=== PATIENT | male | born 1945 ===

== ENCOUNTER 2024-06-13 11:15 | Inpatient (IN) | payer OTHER ==
[~2024-06-13] VITALS: Ht 162.6 cm; Wt 93.4 kg
[2024-06-13] MEDS ORDERED: METFORMIN HCL1000 M2 PO (14:56)
[2024-06-13] MEDS ORDERED: ZOCOR20 MG PO (14:57)
[2024-06-13] MEDS ORDERED: ZESTRIL30 MG PO (14:57)
[2024-06-13] MEDS ORDERED: PENTOXIFYLLINE400 MG PO (14:57)
[2024-06-13] MEDS ORDERED: FINASTERIDE5 MG PO (14:58)
[2024-06-13] MEDS ORDERED: TAMS0.4C PO (14:58)
[2024-06-13] MEDS ORDERED: ZOLOFT25 MG PO (14:58)
[2024-06-13] MEDS ORDERED: GLIMEPIRIDE2 M1 PO (14:59)
[2024-06-13] MEDS ORDERED: MEMANTINE HCL10 MG PO (14:59)
[2024-06-13 15:00] VITALS: BP 146/70
[2024-06-13] MEDS ORDERED: LASIX20 MG PO (15:00)
[2024-06-18] MEDS ORDERED: LIDOCAINE HCL 1%/EPINEPHRINE 20ML VIAL IJ ONE (06:35)
[2024-06-18] MEDS ORDERED: METRONIDAZOLE/SODIUM CHLORIDE 500 MG/100 ML PIGGYBACK IV ONE (06:35)
[2024-06-18] MEDS ORDERED: CEFTRIAXONE SODIUM 2,000 MG VIAL ONE (06:35)
[2024-06-18] MEDS ORDERED: BUPIVACAINE HCL/MPF 0.5% 30ML VIAL ONE (06:36)
[2024-06-18] MEDS ORDERED: DEXTROSE 50 % IN WATER 0.5 G/ML DISP.SYRIN IV PRN ×2 (09:15→13:15)
[2024-06-18] MEDS ORDERED: RINGERS SOLUTION,LACTATED 1,000 ML IV SCH (09:15)
[2024-06-18] MEDS ORDERED: ONDANSETRON HCL 2 MG/ML VIAL IV PRN (09:15)
[2024-06-18] MEDS ORDERED: MORPHINE SULFATE 4 MG/ML CARTRIDGE IV PRN (09:15)
[2024-06-18] MEDS ORDERED: OxyCODONE HCL 5 MG TABLET (ROXICODONE) PO PRN (09:15)
[2024-06-18] MEDS ORDERED: SUGAMMADEX SODIUM 200 MG/2 ML VIAL IV ONE (09:27)
[2024-06-18 11:46] LABS: HEMATOCRIT 34.6 % (39.0-48.0); MEAN CELL VOLUME 88.2 fL (80.0-100.00); MEAN CORPUSCULAR HEMOGLOBIN 27.9 pg (27.00-32.0); MEAN CORPUSCULAR HGB CONC 31.7 g/dl (32.0-36.0); PLATELET COUNT 96 K/uL (150-450); RED BLOOD COUNT 3.92 M/uL (4.00-6.00); RED CELL DISTRIBUTION WIDTH 16.5 % (11.5-14.5)
[2024-06-18 12:22] LABS: ALBUMIN 3.1 gm/dL (3.4-5.0); CREATININE SERUM 1.1 mg/dL (0.70-1.30); GFR 64.57; MAGNESIUM 1.6 mg/dL (1.8-2.4); PHOSPHOROUS 3.6 mg/dL (2.5-4.9); POTASSIUM 4.01 mEq/L (3.5-5.1)
[2024-06-18] MEDS ORDERED: HYOSCYAMINE SULFATE 0.125 MG TAB.SUBL SL SCH (13:00)
[2024-06-18] MEDS ORDERED: INSULIN LISPRO 1,000 UNIT/10 ML UNITS SUBCUTANEO PRN (13:15)
[2024-06-18] MEDS ORDERED: MAGNESIUM SULFATE IN WATER 50 ML IV NR (13:15)
[2024-06-18] MEDS ORDERED: CHLORDIAZEPOXIDE HCL 25 MG CAPSULE PO SCH (13:18)
[2024-06-18 13:28] VITALS: BP 146/70; O2SAT 94
[2024-06-18] MEDS ORDERED: ACETAMINOPHEN 500 MG GEL..CAP PO SCH (14:00)
[2024-06-18 14:01] VITALS: O2SAT 96
[2024-06-18 14:30] LABS: ABG PH 7.398 (7.35-7.45); ABG PO2 69.7 mmHg (80-100); ABG pCO2 40.7 mmHg (35-45); BASE EXCESS -0.3 mmol/l; BICARBONATE 24.5 mmol/l (23-25); SaO2 93.7 %; Tco2 25.8 mmol/l
[2024-06-18 14:33] LABS: o2 21 %; puncture site RADIAL LEFT
[2024-06-18 14:34] LABS: allen test SATISFACTORY
[2024-06-18 16:25] VITALS: BP 149/83; O2SAT 98
[2024-06-18 16:32] VITALS: O2SAT 90
[2024-06-18] MEDS ORDERED: POLYETHYLENE GLYCOL 3350 17 GM BLIST.PACK PO SCH (17:00)
[2024-06-18 19:31] VITALS: O2SAT 90
[2024-06-18] MEDS ORDERED: SERTRALINE HCL 25 MG TABLET PO SCH (21:00)
[2024-06-18] MEDS ORDERED: TAMSULOSIN HCL 0.4 MG CAP PO SCH (21:00)
[2024-06-18] MEDS ORDERED: FAMOTIDINE/PF 20 MG/2 ML VIAL IV PUSH SCH (21:00)
[2024-06-18] MEDS ORDERED: MEMANTINE HCL 10 MG TABLET PO SCH (21:00)
[2024-06-18] MEDS ORDERED: CELECOXIB 200 MG CAPSULE PO SCH (21:00)
[2024-06-19] VITALS (7 sets, daily range): BP systolic 117–133; BP diastolic 65–93; O2SAT 86–100
[2024-06-19] MEDS ORDERED: LEVALBUTEROL HCL 0.63 MG/3 ML SOLUTION IH SCH (06:00)
[2024-06-19 07:11] LABS: HEMATOCRIT 33.3 % (39.0-48.0); HEMOGLOBIN 10.9 g/dL (13-16.00); MEAN CELL VOLUME 86.3 fL (80.0-100.00); MEAN CORPUSCULAR HEMOGLOBIN 28.4 pg (27.00-32.0); MEAN CORPUSCULAR HGB CONC 32.9 g/dl (32.0-36.0); PLATELET COUNT 197 K/uL (150-450); RED BLOOD COUNT 3.86 M/uL (4.00-6.00); RED CELL DISTRIBUTION WIDTH 17.1 % (11.5-14.5)
[2024-06-19 08:18] LABS: ALBUMIN 2.6 gm/dL (3.4-5.0); CALCIUM 7.9 mg/dL (8.5-10.1); CREATININE SERUM 1.03 mg/dL (0.70-1.30); GFR 69.66; MAGNESIUM 2.1 mg/dL (1.8-2.4); PHOSPHOROUS 3.5 mg/dL (2.5-4.9); POTASSIUM 3.69 mEq/L (3.5-5.1)
[2024-06-19] MEDS ORDERED: FINASTERIDE 5 MG TABLET PO SCH (09:00)
[2024-06-19] MEDS ORDERED: THIAMINE HCL 100 MG TABLET PO SCH (09:00)
[2024-06-19] MEDS ORDERED: LISINOPRIL 10 MG TABLET PO SCH (09:00)
[2024-06-19] MEDS ORDERED: FUROsemide 20 MG TABLET PO SCH (09:00)
[2024-06-19] MEDS ORDERED: SIMVASTATIN 20 MG TABLET PO SCH (17:00)
[2024-06-19] MEDS ORDERED: ENOXAPARIN SODIUM 40 MG/0.4 ML SYRINGE SUBCUTANEO SCH (17:00)
[2024-06-20] VITALS (8 sets, daily range): BP systolic 128–169; BP diastolic 70–92; O2SAT 91–99
[2024-06-20] MEDS ORDERED: ENOXAPARIN SODIUM 40 MG/0.4 ML SYRINGE SUBCUTANEO SCH (09:00)
[2024-06-20 10:23] LABS: HEMATOCRIT 34.9 % (39.0-48.0); HEMOGLOBIN 11.3 g/dL (13-16.00); MEAN CELL VOLUME 86.9 fL (80.0-100.00); MEAN CORPUSCULAR HEMOGLOBIN 28.1 pg (27.00-32.0); MEAN CORPUSCULAR HGB CONC 32.3 g/dl (32.0-36.0); PLATELET COUNT 214 K/uL (150-450); RED BLOOD COUNT 4.02 M/uL (4.00-6.00); RED CELL DISTRIBUTION WIDTH 16.6 % (11.5-14.5)
[2024-06-20 11:20] LABS: CREATININE SERUM 1.06 mg/dL (0.70-1.30); GFR 67.39; POTASSIUM 3.75 mEq/L (3.5-5.1)
[2024-06-20] MEDS ORDERED: METHYLPREDNISOLONE SOD SUCC 40 MG VIAL IV STA (11:38)
[2024-06-20] MEDS ORDERED: METHYLPREDNISOLONE SOD SUCC 40 MG VIAL ONE (11:40)
[2024-06-20] MEDS ORDERED: POTASSIUM PHOS,M-BASIC-D-BASIC 3 MM/ML VIAL IV NR (12:00)
[2024-06-20 12:19] LABS: ABG PO2 120.2 mmHg (80-100); ABG pCO2 43.8 mmHg (35-45); BASE EXCESS 0.6 mmol/l; BICARBONATE 25.9 mmol/l (23-25); SaO2 98.6 %; Tco2 27.2 mmol/l
[2024-06-20] MEDS ORDERED: IPRATROPIUM BROMIDE 0.5 MG/2.5 ML AMPUL.NEB IH STA (12:21)
[2024-06-20] MEDS ORDERED: BUDESONIDE 0.25 MG/2 ML AMPUL.NEB IH STA (12:22)
[2024-06-20] MEDS ORDERED: CHLORDIAZEPOXIDE HCL 25 MG CAPSULE PO SCH (13:00)
[2024-06-20 16:12] LABS: allen test SATISFACTORY; o2 32 %; puncture site RADIAL RIGHT
[2024-06-21 01:03] VITALS: BP 153/82; O2SAT 95
[2024-06-21 08:00] VITALS: BP 160/68; O2SAT 98
[2024-06-21] MEDS ORDERED: FLUMAZENIL 0.5 MG/5 ML ML IV STA (11:24)
[2024-06-21 13:09] VITALS: O2SAT 94
[2024-06-21] MEDS ORDERED: AA 4.25%/CAL/LYTES/DEXT 5% 1,000 ML PERIFERAL SCH (17:00)
[2024-06-21 17:02] VITALS: BP 141/84; O2SAT 98
[2024-06-21] MEDS ORDERED: CHLORDIAZEPOXIDE HCL 25 MG CAPSULE PO SCH (21:00)
[2024-06-22] VITALS: BP 134/85; O2SAT 96
[2024-06-22 03:30] VITALS: O2SAT 96
[2024-06-22 08:00] VITALS: BP 147/88; O2SAT 97
[2024-06-22 08:15] LABS: HEMATOCRIT 32.3 % (39.0-48.0); HEMOGLOBIN 10.7 g/dL (13-16.00); MEAN CELL VOLUME 85.7 fL (80.0-100.00); MEAN CORPUSCULAR HEMOGLOBIN 28.4 pg (27.00-32.0); MEAN CORPUSCULAR HGB CONC 33.1 g/dl (32.0-36.0); PLATELET COUNT 290 K/uL (150-450); RED BLOOD COUNT 3.77 M/uL (4.00-6.00)
[2024-06-22 08:48] LABS: CALCIUM 8.4 mg/dL (8.5-10.1); CREATININE SERUM 0.82 mg/dL (0.70-1.30); GFR 90.63; MAGNESIUM 2.1 mg/dL (1.8-2.4); PHOSPHOROUS 2.7 mg/dL (2.5-4.9); POTASSIUM 4.23 mEq/L (3.5-5.1)
[2024-06-22 16:00] VITALS: BP 167/90; O2SAT 97
[2024-06-22 17:31] VITALS: O2SAT 96
[2024-06-22] MEDS ORDERED: CHLORDIAZEPOXIDE HCL 25 MG CAPSULE PO SCH (21:00)
[2024-06-22 21:03] VITALS: O2SAT 95
[2024-06-23] VITALS (9 sets, daily range): BP systolic 149–165; BP diastolic 79–90; O2SAT 92–99
[2024-06-23 08:15] LABS: ALBUMIN 2.6 gm/dL (3.4-5.0); BILIRUBIN TOTAL 0.82 mg/dL (0.3-1.2); CALCIUM 8.7 mg/dL (8.5-10.1); CREATININE SERUM 0.89 mg/dL (0.70-1.30); GFR 82.46; GLOBULINA 3.1 G/DL (2.4-3.5); POTASSIUM 3.8 mEq/L (3.5-5.1); TOTAL PROTEIN 5.7 gm/dL (6.4-8.2)
[2024-06-23] MEDS ORDERED: SODIUM CHLORIDE 0.45 % 1,000 ML IV SCH (10:00)
[2024-06-24] VITALS (9 sets, daily range): BP systolic 156–184; BP diastolic 85–107; O2SAT 93–98
[2024-06-24 07:26] LABS: ALBUMIN 2.7 gm/dL (3.4-5.0); BILIRUBIN TOTAL 0.6 mg/dL (0.3-1.2); CALCIUM 8.7 mg/dL (8.5-10.1); CREATININE SERUM 0.85 mg/dL (0.70-1.30); GFR 86.95; GLOBULINA 3.2 G/DL (2.4-3.5); POTASSIUM 3.76 mEq/L (3.5-5.1); TOTAL PROTEIN 5.9 gm/dL (6.4-8.2)
[2024-06-24] MEDS ORDERED: DEXTROSE 5 % IN WATER 1,000 ML IV STA (10:44)
[2024-06-24] MEDS ORDERED: FLUMAZENIL 0.5 MG/5 ML ML IV NR (12:45)
[2024-06-24] MEDS ORDERED: EMOLLIENTS 6 OZ BOTTLE TOP SCH (13:00)
[2024-06-24] MEDS ORDERED: ENALAPRILAT DIHYDRATE 1.25 MG/ML VIAL IV PRN (17:45)
[2024-06-25] VITALS (10 sets, daily range): BP systolic 139–200; BP diastolic 82–103; O2SAT 90–97
[2024-06-25 06:55] LABS: HEMATOCRIT 33.8 % (39.0-48.0); HEMOGLOBIN 11.1 g/dL (13-16.00); MEAN CELL VOLUME 84.3 fL (80.0-100.00); MEAN CORPUSCULAR HEMOGLOBIN 27.7 pg (27.00-32.0); MEAN CORPUSCULAR HGB CONC 32.9 g/dl (32.0-36.0); PLATELET COUNT 279 K/uL (150-450); RED BLOOD COUNT 4.01 M/uL (4.00-6.00); RED CELL DISTRIBUTION WIDTH 16.9 % (11.5-14.5)
[2024-06-25 08:18] LABS: CALCIUM 8.8 mg/dL (8.5-10.1); CREATININE SERUM 0.97 mg/dL (0.70-1.30); GFR 74.66; MAGNESIUM 1.9 mg/dL (1.8-2.4); PHOSPHOROUS 3.8 mg/dL (2.5-4.9); POTASSIUM 3.21 mEq/L (3.5-5.1)
[2024-06-25] MEDS ORDERED: FAMOTIDINE/PF 20 MG/2 ML VIAL IV SCH (09:00)
[2024-06-25] MEDS ORDERED: POTASSIUM CHLORIDE 20MEQ/100ML H2O PB IV NR (12:30)
[2024-06-25] MEDS ORDERED: DEXTROSE 5 % IN WATER 500 ML IV SCH (13:15)
[2024-06-25] MEDS ORDERED: DILTIAZEM HCL 25 MG/5 ML VIAL IV ONE (16:31)
[2024-06-25] MEDS ORDERED: DILTIAZEM HCL 25 MG/5 ML VIAL IV STA (16:42)
[2024-06-25 17:50] LABS: ABG PH 7.464 (7.35-7.45); ABG PO2 67.4 mmHg (80-100); ABG pCO2 44.9 mmHg (35-45); BASE EXCESS 6.8 mmol/l; BICARBONATE 31.5 mmol/l (23-25); SaO2 94.6 %; Tco2 32.9 mmol/l
[2024-06-25 17:56] LABS: allen test SATISFACTORY; o2 35 %; puncture site RADIAL RIGHT
[2024-06-26] VITALS (9 sets, daily range): BP systolic 139–185; BP diastolic 76–103; O2SAT 90–99
[2024-06-26] MEDS ORDERED: CYANOCOBALAMIN (VITAMIN B-12) 1,000 MCG/ML VIAL IM STA (05:26)
[2024-06-26 07:32] LABS: HEMATOCRIT 35.3 % (39.0-48.0); HEMOGLOBIN 11.4 g/dL (13-16.00); MEAN CELL VOLUME 85.8 fL (80.0-100.00); MEAN CORPUSCULAR HEMOGLOBIN 27.8 pg (27.00-32.0); MEAN CORPUSCULAR HGB CONC 32.4 g/dl (32.0-36.0); PLATELET COUNT 261 K/uL (150-450); RED BLOOD COUNT 4.12 M/uL (4.00-6.00)
[2024-06-26 08:26] LABS: ALBUMIN 2.7 gm/dL (3.4-5.0); BILIRUBIN TOTAL 0.74 mg/dL (0.3-1.2); CALCIUM 8.4 mg/dL (8.5-10.1); GFR 72.08; GLOBULINA 3.5 G/DL (2.4-3.5); PHOSPHOROUS 3.7 mg/dL (2.5-4.9); POTASSIUM 3.56 mEq/L (3.5-5.1); T4 FREE 1.45 NG/ML (0.76-1.46); T4 TOTAL 8.12 UG/DL (4.5-12.1); TOTAL PROTEIN 6.2 gm/dL (6.4-8.2); TSH 0.4 uIU/mL (0.358-3.74)
[2024-06-26] MEDS ORDERED: THIAMINE HCL 100 MG/ML 2 ML VIAL IV SCH (09:00)
[2024-06-26] MEDS ORDERED: PYRIDOXINE HCL 100 MG TABLET PO SCH (09:00)
[2024-06-26] MEDS ORDERED: MULTIVIT INFUSN,ADULT 4,VIT K 10 ML VIAL IV SCH (09:00)
[2024-06-26] MEDS ORDERED: PIPERACILLIN/TAZOBACTAM SODIUM 3.375 GM in 0.9 % SODIUM CHLORIDE 100 ML IV SCH (12:00)
[2024-06-26] MEDS ORDERED: FUROsemide 20 MG/2 ML VIAL IV NR (14:00)
[2024-06-26] MEDS ORDERED: VANCOMYCIN HCL 1,000 MG VIAL IV NR (14:00)
[2024-06-26] MEDS ORDERED: AMINO ACIDS 4.25 %/DEXTROSE 5% 1,000 ML PERIFERAL SCH (17:00)
[2024-06-26] MEDS ORDERED: ENALAPRILAT DIHYDRATE 1.25 MG/ML VIAL IV SCH (18:00)
[2024-06-26] MEDS ORDERED: VANCOMYCIN HCL 1,000 MG VIAL IV SCH (21:00)
[2024-06-26] MEDS ORDERED: FUROsemide 20 MG/2 ML VIAL IV SCH (21:00)
[2024-06-27] VITALS (10 sets, daily range): BP systolic 124–170; BP diastolic 75–103; O2SAT 90–98
[2024-06-27] MEDS ORDERED: hydrALAZINE HCL 20 MG VIAL IV SCH ×2 (01:00→12:00)
[2024-06-27 06:47] LABS: HEMATOCRIT 35.5 % (39.0-48.0); HEMOGLOBIN 11.5 g/dL (13-16.00); MEAN CELL VOLUME 85.1 fL (80.0-100.00); MEAN CORPUSCULAR HEMOGLOBIN 27.5 pg (27.00-32.0); MEAN CORPUSCULAR HGB CONC 32.3 g/dl (32.0-36.0); PLATELET COUNT 230 K/uL (150-450); RED BLOOD COUNT 4.18 M/uL (4.00-6.00); RED CELL DISTRIBUTION WIDTH 17.3 % (11.5-14.5)
[2024-06-27 07:33] LABS: CALCIUM 8.4 mg/dL (8.5-10.1); CREATININE SERUM 1.62 mg/dL (0.70-1.30); GFR 41.31; MAGNESIUM 1.8 mg/dL (1.8-2.4); PHOSPHOROUS 3.3 mg/dL (2.5-4.9); POTASSIUM 3.04 mEq/L (3.5-5.1)
[2024-06-27] MEDS ORDERED: POTASSIUM CHLORIDE 20MEQ/100ML H2O PB IV NR (11:30)
[2024-06-27] MEDS ORDERED: MEROPENEM 500 MG/VIAL VIAL IV SCH (13:00)
[2024-06-27] MEDS ORDERED: VANCOMYCIN HCL 5 MG/ML REDILUIDO IV SCH (13:00)
[2024-06-28] VITALS (9 sets, daily range): BP systolic 154–167; BP diastolic 79–100; O2SAT 87–123
[2024-06-28 07:24] LABS: HEMATOCRIT 34.6 % (39.0-48.0); MEAN CELL VOLUME 87.1 fL (80.0-100.00); MEAN CORPUSCULAR HEMOGLOBIN 27.8 pg (27.00-32.0); MEAN CORPUSCULAR HGB CONC 31.9 g/dl (32.0-36.0); PLATELET COUNT 209 K/uL (150-450); RED BLOOD COUNT 3.97 M/uL (4.00-6.00); RED CELL DISTRIBUTION WIDTH 16.8 % (11.5-14.5)
[2024-06-28 08:14] LABS: ALBUMIN 2.6 gm/dL (3.4-5.0); BILIRUBIN TOTAL 0.77 mg/dL (0.3-1.2); CALCIUM 8.2 mg/dL (8.5-10.1); CREATININE SERUM 1.07 mg/dL (0.70-1.30); GFR 66.67; GLOBULINA 3.6 G/DL (2.4-3.5); MAGNESIUM 1.8 mg/dL (1.8-2.4); PHOSPHOROUS 2.7 mg/dL (2.5-4.9); TOTAL PROTEIN 6.2 gm/dL (6.4-8.2)
[2024-06-28 08:22] LABS: POTASSIUM 2.87 mEq/L (3.5-5.1)
[2024-06-28] MEDS ORDERED: DEXTROSE 5 % IN WATER 1,000 ML IV SCH (08:30)
[2024-06-28 08:39] LABS: PROSTATIC SPECIFIC ANTIGEN 4.27 NG/ML (0.010-4.00)
[2024-06-28] MEDS ORDERED: POTASSIUM CHLORIDE 20MEQ/100ML H2O PB IV NR (09:00)
[2024-06-28] MEDS ORDERED: POTASSIUM CHLORIDE IN WATER 100 ML IV NR (14:35)
[2024-06-28] MEDS ORDERED: VANCOMYCIN HCL 5 MG/ML REDILUIDO IV SCH (17:00)
[2024-06-29] VITALS (7 sets, daily range): BP systolic 149–180; BP diastolic 71–90; O2SAT 85–97
[2024-06-29 08:11] LABS: HEMATOCRIT 32.6 % (39.0-48.0); HEMOGLOBIN 10.5 g/dL (13-16.00); MEAN CELL VOLUME 86.6 fL (80.0-100.00); MEAN CORPUSCULAR HEMOGLOBIN 27.9 pg (27.00-32.0); MEAN CORPUSCULAR HGB CONC 32.2 g/dl (32.0-36.0); PLATELET COUNT 206 K/uL (150-450); RED BLOOD COUNT 3.76 M/uL (4.00-6.00); RED CELL DISTRIBUTION WIDTH 17.1 % (11.5-14.5)
[2024-06-29 08:23] LABS: ALBUMIN 2.4 gm/dL (3.4-5.0); BILIRUBIN TOTAL 0.59 mg/dL (0.3-1.2); CREATININE SERUM 0.83 mg/dL (0.70-1.30); GFR 89.37; GLOBULINA 3.7 G/DL (2.4-3.5); MAGNESIUM 1.6 mg/dL (1.8-2.4); POTASSIUM 3.17 mEq/L (3.5-5.1); TOTAL PROTEIN 6.1 gm/dL (6.4-8.2)
[2024-06-29 10:43] LABS: PHOSPHOROUS 1.1 mg/dL (2.5-4.9)
[2024-06-29] MEDS ORDERED: POTASSIUM PHOS,M-BASIC-D-BASIC 9 MM in 0.9 % SODIUM CHLORIDE 250 ML IV NR (11:00)
[2024-06-29] MEDS ORDERED: POTASSIUM CHLORIDE IN WATER 100 ML IV NR (11:00)
[2024-06-29] MEDS ORDERED: MAGNESIUM SULFATE IN WATER 4 GM/100 ML PIGGYBACK IV NR (11:12)
[2024-06-30 01:01] VITALS: BP 170/84; O2SAT 98
[2024-06-30 05:55] VITALS: O2SAT 90
[2024-06-30 08:00] VITALS: BP 162/87; O2SAT 96
[2024-06-30 09:28] VITALS: O2SAT 84
[2024-06-30 13:25] LABS: ALBUMIN 2.3 gm/dL (3.4-5.0); BILIRUBIN TOTAL 0.64 mg/dL (0.3-1.2); CALCIUM 7.7 mg/dL (8.5-10.1); CREATININE SERUM 0.7 mg/dL (0.70-1.30); GFR 108.79; GLOBULINA 3.6 G/DL (2.4-3.5); MAGNESIUM 2.3 mg/dL (1.8-2.4); POTASSIUM 3.11 mEq/L (3.5-5.1); TOTAL PROTEIN 5.9 gm/dL (6.4-8.2)
[2024-06-30 13:38] LABS: PHOSPHOROUS 1.6 mg/dL (2.5-4.9)
[2024-06-30 14:02] LABS: HEMATOCRIT 31.9 % (39.0-48.0); HEMOGLOBIN 10.1 g/dL (13-16.00); MEAN CELL VOLUME 85.7 fL (80.0-100.00); MEAN CORPUSCULAR HEMOGLOBIN 27.2 pg (27.00-32.0); MEAN CORPUSCULAR HGB CONC 31.7 g/dl (32.0-36.0); PLATELET COUNT 191 K/uL (150-450); RED BLOOD COUNT 3.72 M/uL (4.00-6.00); RED CELL DISTRIBUTION WIDTH 17.4 % (11.5-14.5)
[2024-06-30] MEDS ORDERED: POTASSIUM CHLORIDE IN WATER 100 ML IV NR (14:30)
[2024-06-30] MEDS ORDERED: POTASSIUM PHOS,M-BASIC-D-BASIC 15 MM in 0.9 % SODIUM CHLORIDE 250 ML IV NR (14:30)
[2024-06-30 16:13] VITALS: BP 152/84; O2SAT 90
[2024-07-01] VITALS: BP 155/90; O2SAT 98
[2024-07-01 10:39] VITALS: BP 130/84; O2SAT 98
[2024-07-01] MEDS ORDERED: INSULIN NPH HUMAN ISOPHANE 1,000 UNITS/10 ML UNITS SUBCUTANEO STA (12:36)
[2024-07-01] MEDS ORDERED: FUROsemide 20 MG/2 ML VIAL IV SCH (13:55)
[2024-07-01] MEDS ORDERED: POTASSIUM CHLORIDE 20MEQ/100ML H2O PB IV NR (14:00)
[2024-07-01] MEDS ORDERED: POTASSIUM PHOS,M-BASIC-D-BASIC 3 MM/ML VIAL IV ONE ×2 (14:00→20:00)
[2024-07-01] MEDS ORDERED: FLUCONAZOLE IN NACL,ISO-OSM 400 MG/200 ML PIGGYBAG IV NR (15:30)
[2024-07-01 16:29] VITALS: BP 162/78; O2SAT 90
[2024-07-01] MEDS ORDERED: VANCOMYCIN HCL 5 MG/ML REDILUIDO IV SCH (17:00)
[2024-07-01] MEDS ORDERED: MEROPENEM 500 MG/VIAL VIAL IV SCH (20:00)
[2024-07-01] MEDS ORDERED: INSULIN NPH HUMAN ISOPHANE 1,000 UNITS/10 ML UNITS SUBCUTANEO SCH (21:00)
[2024-07-02 00:01] LABS: HEMATOCRIT 32.2 % (39.0-48.0); HEMOGLOBIN 10.4 g/dL (13-16.00); MEAN CELL VOLUME 85.4 fL (80.0-100.00); MEAN CORPUSCULAR HEMOGLOBIN 27.5 pg (27.00-32.0); MEAN CORPUSCULAR HGB CONC 32.2 g/dl (32.0-36.0); PLATELET COUNT 280 K/uL (150-450); RED BLOOD COUNT 3.77 M/uL (4.00-6.00); RED CELL DISTRIBUTION WIDTH 17.4 % (11.5-14.5)
[2024-07-02 00:21] LABS: INR 1.1; PROTHROMBIN TIME 11.9 SECONDS (9.0-11.5)
[2024-07-02 00:32] LABS: ALBUMIN 2.3 gm/dL (3.4-5.0); BILIRUBIN TOTAL 0.5 mg/dL (0.3-1.2); BILIRUBIN,CONJUGATED 0.25 mg/dL (0.0-0.2); BILIRUBIN,UNCONJUGATED 0.25 mg/dL (0.0-0.6); CHOL HDL RATIO 3.6 (0-5.0); CREATININE SERUM 0.71 mg/dL (0.70-1.30); GFR 107.02; GLOBULINA 3.9 G/DL (2.4-3.5); MAGNESIUM 1.7 mg/dL (1.8-2.4); POTASSIUM 4.13 mEq/L (3.5-5.1); TOTAL PROTEIN 6.2 gm/dL (6.4-8.2)
[2024-07-02 00:42] VITALS: BP 157/88; O2SAT 98
[2024-07-02 08:45] LABS: HEMATOCRIT 31.9 % (39.0-48.0); HEMOGLOBIN 10.2 g/dL (13-16.00); MEAN CELL VOLUME 86.9 fL (80.0-100.00); MEAN CORPUSCULAR HEMOGLOBIN 27.7 pg (27.00-32.0); MEAN CORPUSCULAR HGB CONC 31.9 g/dl (32.0-36.0); PLATELET COUNT 278 K/uL (150-450); RED BLOOD COUNT 3.67 M/uL (4.00-6.00); RED CELL DISTRIBUTION WIDTH 17.1 % (11.5-14.5)
[2024-07-02 10:02] VITALS: O2SAT 99
[2024-07-02 10:03] LABS: ALBUMIN 2.3 gm/dL (3.4-5.0); BILIRUBIN TOTAL 0.53 mg/dL (0.3-1.2); CALCIUM 8.2 mg/dL (8.5-10.1); CREATININE SERUM 0.71 mg/dL (0.70-1.30); GFR 107.02; GLOBULINA 3.5 G/DL (2.4-3.5); MAGNESIUM 1.9 mg/dL (1.8-2.4); PHOSPHOROUS 2.7 mg/dL (2.5-4.9); POTASSIUM 3.64 mEq/L (3.5-5.1); TOTAL PROTEIN 5.8 gm/dL (6.4-8.2)
[2024-07-02 10:09] LABS: C-REACTIVE PROTEIN 9.74 MG/DL (0.00-0.29)
[2024-07-02 10:33] VITALS: BP 159/83; O2SAT 98
[2024-07-02 13:20] LABS: PH,URINE 6.5 (5.0-8.0); URINE APPEARANCE Clear; URINE BILIRRUBIN Negative (NEGATIVE); URINE BLOOD Small; URINE COLOR Yellow; URINE GLUCOSE Negative (NEGATIVE); URINE KETONE Negative (NEGATIVE); URINE LEUKOCYTE Negative; URINE NITRATE Negative; URINE PROTEIN Trace (NEGATIVE)
[2024-07-02 13:24] LABS: URINE BACTERIA 21.4 uL (0.0-1933); URINE RBC 161.5 uL (0.0-20.8); URINE WBC 9.5 uL (0.0-23.2)
[2024-07-02 13:47] LABS: URINE CAST 0.91 uL (0.0-1.40); URINE EPITHELIAL CELLS 0.4 uL (0.0-38.8)
[2024-07-02 14:16] VITALS: O2SAT 96
[2024-07-02 16:00] VITALS: BP 153/82; O2SAT 92
[2024-07-02 17:00] VITALS: O2SAT 90
[2024-07-02] MEDS ORDERED: FLUCONAZOLE IN NACL,ISO-OSM 100 ML IV SCH (17:00)
[2024-07-03] VITALS (8 sets, daily range): BP systolic 132–152; BP diastolic 81–87; O2SAT 89–100
[2024-07-03] MEDS ORDERED: CYANOCOBALAMIN (VITAMIN B-12) 1,000 MCG/ML VIAL IM SCH (09:00)
[2024-07-04] VITALS (8 sets, daily range): BP systolic 136–167; BP diastolic 84–87; O2SAT 67–99
[2024-07-04 12:16] LABS: HEMATOCRIT 31.3 % (39.0-48.0); MEAN CELL VOLUME 85.9 fL (80.0-100.00); MEAN CORPUSCULAR HEMOGLOBIN 27.5 pg (27.00-32.0); PLATELET COUNT 301 K/uL (150-450); RED BLOOD COUNT 3.65 M/uL (4.00-6.00); RED CELL DISTRIBUTION WIDTH 17.1 % (11.5-14.5)
[2024-07-04 13:20] LABS: ALBUMIN 2.1 gm/dL (3.4-5.0); BILIRUBIN TOTAL 0.52 mg/dL (0.3-1.2); CALCIUM 8.2 mg/dL (8.5-10.1); CREATININE SERUM 0.5 mg/dL (0.70-1.30); GFR 160.4; GLOBULINA 3.4 G/DL (2.4-3.5); POTASSIUM 3.18 mEq/L (3.5-5.1); TOTAL PROTEIN 5.5 gm/dL (6.4-8.2)
[2024-07-04] MEDS ORDERED: POTASSIUM CHLORIDE 20MEQ/100ML H2O PB IV ONE (19:15)
[2024-07-05 01:36] VITALS: BP 147/84; O2SAT 95
[2024-07-05 06:09] VITALS: O2SAT 96
[2024-07-05 08:51] VITALS: BP 163/95; O2SAT 100
[2024-07-05 13:22] VITALS: O2SAT 95
[2024-07-05 17:00] VITALS: BP 147/89; O2SAT 92
[2024-07-05 20:27] VITALS: O2SAT 85; O2SAT 853
[2024-07-06 01:49] VITALS: BP 130/95; O2SAT 94
[2024-07-06 08:00] VITALS: BP 141/83; O2SAT 99
[2024-07-06 08:08] LABS: CALCIUM 8.6 mg/dL (8.5-10.1); CREATININE SERUM 0.56 mg/dL (0.70-1.30); GFR 140.74; MAGNESIUM 1.7 mg/dL (1.8-2.4); PHOSPHOROUS 2.2 mg/dL (2.5-4.9); POTASSIUM 3.8 mEq/L (3.5-5.1)
[2024-07-06] MEDS ORDERED: MAGNESIUM SULFATE IN WATER 2 GM/50 ML PIGGYBAG IV NR (11:58)
[2024-07-06 17:00] VITALS: BP 125/79; O2SAT 94
[2024-07-07 00:35] VITALS: BP 202/68; O2SAT 99
[2024-07-07 05:00] VITALS: BP 155/104
[2024-07-07 08:25] VITALS: BP 188/89; O2SAT 85
[2024-07-07 17:00] VITALS: BP 162/61; O2SAT 95
[2024-07-08 00:36] VITALS: O2SAT 99
[2024-07-08 01:55] VITALS: BP 152/94
[2024-07-08 05:15] VITALS: BP 164/92; O2SAT 98
[2024-07-08 06:07] VITALS: O2SAT 100
[2024-07-08 06:14] LABS: HEMATOCRIT 32.9 % (39.0-48.0); HEMOGLOBIN 10.6 g/dL (13-16.00); MEAN CELL VOLUME 85.5 fL (80.0-100.00); MEAN CORPUSCULAR HEMOGLOBIN 27.6 pg (27.00-32.0); MEAN CORPUSCULAR HGB CONC 32.2 g/dl (32.0-36.0); PLATELET COUNT 408 K/uL (150-450); RED BLOOD COUNT 3.85 M/uL (4.00-6.00)
[2024-07-08 06:29] LABS: INR 1.15; PARTIAL THROMBOPLASTIN TIME 35.3 SECONDS (22.0-34.0); PROTHROMBIN TIME 12.4 SECONDS (9.0-11.5)
[2024-07-08 06:43] LABS: ALBUMIN 2.6 gm/dL (3.4-5.0); BILIRUBIN TOTAL 0.58 mg/dL (0.3-1.2); BILIRUBIN,CONJUGATED 0.22 mg/dL (0.0-0.2); BILIRUBIN,UNCONJUGATED 0.36 mg/dL (0.0-0.6); CALCIUM 8.5 mg/dL (8.5-10.1); CREATININE SERUM 0.54 mg/dL (0.70-1.30); GFR 146.77; MAGNESIUM 1.9 mg/dL (1.8-2.4); POTASSIUM 3.29 mEq/L (3.5-5.1); TOTAL PROTEIN 6.6 gm/dL (6.4-8.2)
[2024-07-08 08:00] VITALS: BP 148/84; O2SAT 92
[2024-07-08] MEDS ORDERED: POTASSIUM CHLORIDE 20MEQ/100ML H2O PB IV NR (10:46)
[2024-07-08 10:56] LABS: UREA CLEARANCE 67.4 ML/MIN
[2024-07-08 16:00] VITALS: BP 156/97; O2SAT 96
[2024-07-09] VITALS: BP 130/80; O2SAT 100
[2024-07-09] MEDS ORDERED: POTASSIUM CHLORIDE/D5W 20 MEQ/1,000 ML PIGGYBAG IV SCH (07:30)
[2024-07-09] MEDS ORDERED: POTASSIUM CHLORIDE/D5W 1,000 ML IV SCH (07:45)
[2024-07-09 08:00] VITALS: BP 161/90; O2SAT 93
[2024-07-09 08:30] VITALS: O2SAT 99
[2024-07-09 12:00] VITALS: BP 147/84; O2SAT 95
[2024-07-09 16:00] VITALS: BP 146/85; O2SAT 92
[2024-07-09 19:44] VITALS: O2SAT 72
[2024-07-10] VITALS (8 sets, daily range): BP systolic 151–186; BP diastolic 68–92; O2SAT 90–99
[2024-07-10 07:02] LABS: HEMATOCRIT 33.7 % (39.0-48.0); HEMOGLOBIN 10.8 g/dL (13-16.00); MEAN CELL VOLUME 84.5 fL (80.0-100.00); PLATELET COUNT 369 K/uL (150-450); RED BLOOD COUNT 3.99 M/uL (4.00-6.00); RED CELL DISTRIBUTION WIDTH 17.2 % (11.5-14.5)
[2024-07-10 07:12] LABS: CALCIUM 8.8 mg/dL (8.5-10.1); CREATININE SERUM 0.63 mg/dL (0.70-1.30); GFR 122.85; MAGNESIUM 1.9 mg/dL (1.8-2.4); PHOSPHOROUS 2.2 mg/dL (2.5-4.9); POTASSIUM 3.43 mEq/L (3.5-5.1)
[2024-07-10 07:17] LABS: C-REACTIVE PROTEIN 4.47 MG/DL (0.00-0.29)
[2024-07-10] MEDS ORDERED: POTASSIUM PHOS,M-BASIC-D-BASIC 3 MM/ML VIAL IV ONE (11:00)
[2024-07-10] MEDS ORDERED: POTASSIUM CHLORIDE 20 MEQ VIAL IV NR (14:00)
[2024-07-10] MEDS ORDERED: MEROPENEM 500 MG/VIAL VIAL IV SCH (14:00)
[2024-07-10] MEDS ORDERED: VANCOMYCIN HCL 5 MG/ML REDILUIDO IV SCH (17:00)
[2024-07-11] VITALS (8 sets, daily range): BP systolic 133–180; BP diastolic 77–91; O2SAT 93–100
[2024-07-12 00:06] VITALS: O2SAT 100
[2024-07-12 01:19] VITALS: BP 132/59; BP 165/65; O2SAT 100; O2SAT 98
[2024-07-12 03:07] VITALS: O2SAT 97
[2024-07-12 08:00] VITALS: BP 184/85; O2SAT 100
[2024-07-12 09:04] VITALS: O2SAT 100
[2024-07-12] MEDS ORDERED: MEMANTINE HCL10 MG PO (12:50)
[2024-07-12] MEDS ORDERED: ABANEU-SL TABL1 EACH SL (12:50)
[2024-07-12] MEDS ORDERED: PYRIDOXINE HCL100 MG PO (12:50)
[2024-07-12] MEDS ORDERED: ZESTRIL30 MG PO (12:50)
[2024-07-12] MEDS ORDERED: ZOLOFT25 MG PO (12:50)
[2024-07-12] MEDS ORDERED: LASIX20 MG PO (12:50)
[2024-07-12] MEDS ORDERED: LEVALBUTER0.31 MG/3 IH (12:50)
[2024-07-12] MEDS ORDERED: PENTOXIFYLLINE400 MG PO (12:50)
[2024-07-12] MEDS ORDERED: FINASTERIDE5 MG PO (12:50)
[2024-07-12] MEDS ORDERED: FUSION PLUS CA1 EACH PO (12:50)
[2024-07-12] MEDS ORDERED: TAMS0.4C PO (12:50)
[2024-07-12] MEDS ORDERED: THIAMINE H100 MG/1 M IV (12:50)
[2024-07-12] MEDS ORDERED: SIMVASTATIN20 MG PO (12:50)
== END 2024-07-12 14:57 | disposition home or self-care (01) | DRG 329 ==
LOC: SURH 06-18 05:19 → O/R 06-18 05:19 → SURH 06-18 10:46
PROVIDERS: Internal Medicine; Internal Medicine Geriatric Medicine; Internal Medicine Infectious Disease; Internal Medicine Nephrology; Surgery; ADMIT Surgery; ATTEND Surgery
PROC: 07BB4ZZ Excision of Mesenteric Lymphatic, Percutaneous Endoscopic Approach (ICD-10-PCS; 2024-06-18)
PROC: 4A12X4Z Monitoring of Cardiac Electrical Activity, External Approach (ICD-10-PCS; 2024-06-18)
PROC: 0DTF4ZZ Resection of Right Large Intestine, Percutaneous Endoscopic Approach (ICD-10-PCS; principal; 2024-06-18 15:30)
PROC: BW28ZZZ Computerized Tomography (CT Scan) of Head (ICD-10-PCS; 2024-06-25)
PROC: 02HV33Z Insertion of Infusion Device into Superior Vena Cava, Percutaneous Approach (ICD-10-PCS; 2024-06-26)
PROC: BW21YZZ Computerized Tomography (CT Scan) of Abdomen and Pelvis using Other Contrast (ICD-10-PCS; 2024-06-26)
PROC: BW24ZZZ Computerized Tomography (CT Scan) of Chest and Abdomen (ICD-10-PCS; 2024-06-26)
PROC: B24BZZZ Ultrasonography of Heart with Aorta (ICD-10-PCS; 2024-06-26)
DX: C18.2 Malignant neoplasm of ascending colon (principal); G93.41 Metabolic encephalopathy; J18.9 Pneumonia, unspecified organism; E87.0 Hyperosmolality and hypernatremia; K92.1 Melena; I48.20 Chronic atrial fibrillation, unspecified; N17.9 Acute kidney failure, unspecified; J90 Pleural effusion, not elsewhere classified; R59.0 Localized enlarged lymph nodes; E11.9 Type 2 diabetes mellitus without complications; Z79.4 Long term (current) use of insulin; G30.9 Alzheimer's disease, unspecified; F02.80 Dementia in other diseases classified elsewhere, unspecified severity, without behavioral disturbance, psychotic disturbance, mood disturbance, and anxiety; E66.01 Morbid (severe) obesity due to excess calories; I25.10 Atherosclerotic heart disease of native coronary artery without angina pectoris; I11.9 Hypertensive heart disease without heart failure; D64.9 Anemia, unspecified; F10.20 Alcohol dependence, uncomplicated; Z86.718 Personal history of other venous thrombosis and embolism; G47.30 Sleep apnea, unspecified; J44.9 Chronic obstructive pulmonary disease, unspecified; R41.82 Altered mental status, unspecified; F43.20 Adjustment disorder, unspecified; E11.65 Type 2 diabetes mellitus with hyperglycemia